=== PATIENT | male | born 1995 | race Two or more races ===

== ENCOUNTER 2020-01-25 15:44 | Emergency (ER) | payer MEDICAID ==
[~2020-01-25] VITALS: Ht 182.9 cm; Wt 100.0 kg
[2020-01-25 16:53] LABS: CLARITY URINE CLEAR (CLEAR); COLOR URINE ORANGE (YELLOW); KETONES URINE 3+ (NEGATIVE); LEUKOCYTE ESTERASE URINE TRACE (NEGATIVE); NITRITE URINE NEGATIVE (NEGATIVE); OCCULT BLOOD URINE NEGATIVE (NEGATIVE); PH URINE 5.5 (4.5-8.0); PROTEIN URINE NEGATIVE (NEGATIVE); SPECIFIC GRAVITY URINE 1.021 (1.005-1.030)
[2020-01-25] MEDS ORDERED: FAMOTIDINE 20MG TABLET PO ONE (17:00)
[2020-01-25 17:19] LABS: BASOPHILS % 0.2 % (0.0-2.0); HEMATOCRIT. 43.9 % (36.0-48.0); HEMOGLOBIN. 15.3 g/dL (12.0-16.0); LYMPHOCYTES % 23.3 % (20.0-50.0); MEAN CORPUSCULAR HEMOGLOBIN 30.8 pg (28.0-32.0); MEAN CORPUSCULAR VOLUME 88.5 fL (81.0-99.0); MEAN PLATELET VOLUME 8.9 fl (7.4-10.4); MONOCYTES % 6.8 % (2.0-8.0); NEUTROPHILS % 68.7 % (40.0-76.0); PLATELET 165 x1000/uL (130-400); RED BLOOD CELL COUNT 4.97 mill/uL (4.2-5.4); RED CELL DISTRIBUTION WIDTH 12.8 % (11.6-14.6)
[2020-01-25 17:21] LABS: CHLORIDE 105 mEq/L (98-107)
[2020-01-25 18:57] VITALS: BP 131/72
== END 2020-01-25 19:27 | disposition home or self-care (01) ==
LOC: ER 15:44 → EDSEX 15:44 → ER 19:27
DX: R10.0 Acute abdomen (principal); R07.89 Other chest pain; E78.5 Hyperlipidemia, unspecified; K21.9 Gastro-esophageal reflux disease without esophagitis; R03.0 Elevated blood-pressure reading, without diagnosis of hypertension
CPT/HCPCS: 36415; 71045; 76700; 80053; 81003; 85025; 93005; 99285

== ENCOUNTER 2021-01-18 19:01 | Emergency (ER) | payer SELFPAY ==
[~2021-01-18] VITALS: Ht 182.9 cm; Wt 98.0 kg
[2021-01-18 19:17] VITALS: BP 155/95
== END 2021-01-18 22:46 | disposition left against medical advice (07) ==
LOC: ER 19:01
DX: Z53.21 Procedure and treatment not carried out due to patient leaving prior to being seen by health care provider (principal); R07.89 Other chest pain
CPT/HCPCS: 93005